=== PATIENT | male | born 1975 | race African-American/Black ===

== ENCOUNTER 2020-02-11 15:25 | Emergency (ER) | payer BC, MEDICAID ==
[~2020-02-11] VITALS: Ht 177.8 cm; Wt 84.7 kg
--- NOTE | 2020-02-11 16:01 | NUR ---
TASK RN: FIST CONTACT WITH PT. PT SITTING UP IN [facility], NAD NOTED. PT REPORTS INTERMITTENT R YARSANI FIORE X THREE WEEKS, PAIN RADIATES TO OCCIPITAL AREA/R NECK/L CHEST. PAIN IS INTERMITTENT, NO AGGRAVATING FACTORS. CAN BE MINIMIZED WITH NSAIDS. +PHOTOPHOBIA, DENIES NAUSEA/VOMITING/TRAUMA/CHANGES IN SPEECH OR VISION. DENIES HX OF FIORE. AREA NON-TENDER TO PALPATION. GROSS NEURO INTACT. BP/SPO2/ECG MONITORING IN PLACE. NSR ON MONITOR. SO AT BEDSIDE. PT/SO UPDATED TO POC (RESULTS/RECHECK) AND DEMONSTRATES UNDERSTANDING. REPORT TO PRIMARY RNKAYKAY.
[2020-02-11 16:04] VITALS: BP 118/84
--- NOTE | 2020-02-11 16:27 | NUR ---
to radiology poc reviewed with provider-venipuncture labs/head ct-escalate as needed
--- NOTE | 2020-02-11 17:00 | NUR ---
LABS DRAWN AND SENT BY DIRECTOR ERP
[2020-02-11 17:20] LABS: ALANINE AMINOTRANSFERASE 20 U/L (12-78); ALBUMIN 3.7 g/dL (3.4-5.0); ANION GAP 3 mmol/L (5-15); CHLORIDE 112 mmol/L (98-107); CREATININE 1.28 mg/dL (0.7-1.3)
[2020-02-11 17:23] LABS: ALKALINE PHOSPHATASE 59 U/L (45-117); BASOPHILS # (AUTO) 0.02 x10^3/uL (0-0.1); BASOPHILS % (AUTO) 0 % (0-1); BILIRUBIN,TOTAL 1.2 mg/dL (0.2-1.0); EOSINOPHILS # (AUTO) 0.05 x10^3/uL (0-0.4); EOSINOPHILS % (AUTO) 1 % (1-7); LYMPHOCYTES # (AUTO) 1.53 x10^3/uL (1-3.4); LYMPHOCYTES % (AUTO) 25 % (22-44); MD NO; MEAN CORPUSCULAR HEMOGLOBIN 30.7 pg (27.5-34.5); MEAN CORPUSCULAR HGB CONC 33.6 g/dL (33.2-36.2); MEAN CORPUSCULAR VOLUME 91.3 fL (81-97); MONOCYTES # (AUTO) 0.36 x10^3/uL (0.2-0.8); MONOCYTES % (AUTO) 6 % (2-9); NEUTROPHILS # (AUTO) 4.18 x10^3/uL (1.8-6.8); NEUTROPHILS % (AUTO) 68 % (42-75); PLATELET COUNT 201 x10^3/uL (130-400); RED BLOOD COUNT 4.76 x10^6/uL (4.38-5.82); RED CELL DISTRIBUTION WIDTH 12.4 % (9.4-14.8); TOTAL PROTEIN 7.1 g/dL (6.4-8.2); TROPONIN I < 0.015 ng/mL (0.000-0.045)
== END 2020-02-11 17:46 | disposition home or self-care (01) ==
LOC: ED 17:40
DX: G44.219 Episodic tension-type headache, not intractable (principal); R07.89 Other chest pain; M94.0 Chondrocostal junction syndrome [Tietze]
CPT/HCPCS: 36415; 70450; 71045; 80053; 84484; 85025; 93005; 99285